=== PATIENT | female | born 1955 | race Caucasian/White ===

== ENCOUNTER 2016-08-23 14:05 | Emergency (ER) | payer OTHER ==
[~2016-08-23] VITALS: Wt 63.0 kg
[~2016-08-23 14:05] MED LIST: CYCL-319 PO; LOSA25TA5 PO; ONDA4TAB14 PO; TRAM50TA2 PO
[2016-08-23] MEDS ORDERED: SOD CHLORIDE 0.9% 1,000 ML IV STA (18:02)
[2016-08-23] MEDS ORDERED: KETOROLAC 15 MG INJ IV STA (18:02)
[2016-08-23] MEDS ORDERED: ONDANSETRON 4 MG INJ IV STA (18:02)
--- NOTE | 2016-08-23 18:02 | ERD ---
ER Documentation Chief Complaint Date/Time DATE: 08/23/16 TIME: 18:02 Chief Complaint R LOW ABD PAIN FOR 1 WK. NO FEVER. NO VOMITING. SENT BY PMD FOR EVAL HPI 60-year-old hypertensive with a long history of chronic abdominal pain female referred to the ED by her PMD at [facility] for evaluation. Patient complains of a 2 week history of worsening, moderate to severe, sharp and achy nonradiating lower abdominal pain which localizes to the suprapubic area and right lower quadrant. Mild nausea but no vomiting, diarrhea or constipation. Denies hematemesis, hematochezia or melanotic stools. Denies dysuria, polyuria, hematuria, vaginal discharge or bleeding. No relieving or exacerbating factors. No fevers or chills. She has had a history of similar pain dating back at least to 2011 with multiple previous ED visits and workups which have been unremarkable. ROS All systems reviewed and are negative except as per history of present illness. Medications Home Meds Active Scripts Ondansetron (Ondansetron Odt) 4 Mg Tab.rapdis, 4 MG PO Q6H Y for NAUSEA AND/OR VOMITING, #10 TAB Prov:JOSE PETERSON MD 08/23/16 Tramadol HCl (Tramadol HCl) 50 Mg Tablet, 50 MG PO Q6, #10 TAB Prov:JOSE PETERSON MD 08/23/16 Reported Medications Losartan Potassium* (Losartan Potassium*) 25 Mg Tablet, 25 MG PO DAILY, TAB 02/26/16 Discontinued Reported Medications Cyclobenzaprine Hcl* (Cyclobenzaprine Hcl*) 10 Mg Tablet, 10 MG PO QHS Y for MUSCLE SPASMS, #60 TAB 02/26/16 Discontinued Scripts Ondansetron (Ondansetron Odt) 4 Mg Tab.rapdis, 4 MG PO Q6H Y for NAUSEA AND/OR VOMITING, #30 TAB Prov:QIANA DE JESUS MD 02/26/16 Tramadol HCl (Tramadol HCl) 50 Mg Tablet, 50 MG PO Q6 Y for PAIN, #10 TAB Prov:QIANA DE JESUS MD 02/26/16 Allergies Allergies: Coded Allergies: metronidazole (Verified Allergy, Unknown, 08/23/16) morphine (Verified Allergy, Unknown, 08/23/16) PMhx/Soc Reviewed in chart. As per HPI. History of Surgery: Yes (GLAUCOMA) Anesthesia Reaction: No Hx Neurological Disorder: No Hx Cardiac Disorders: Yes (HTN) Hx Psychiatric Problems: No Hx Miscellaneous Medical Probl: No Hx Alcohol Use: No Hx Substance Use: No Hx Tobacco Use: No Smoking Status: Never smoker FmHx No stroke or cancer Physical Exam Vitals Vital Signs Date Time Temp Pulse Resp B/P Pulse Ox O2 Delivery O2 Flow Rate FiO2 08/23/16 20:10 98.2 61 20 152/66 100 Room Air 08/23/16 19:10 61 20 154/59 100 Room Air 08/23/16 14:11 98.8 73 20 212/91 99 Physical Exam Const: Alert, mild to moderate distress due to pain. Head: Atraumatic Eyes: Normal Conjunctiva ENT: Normal External Ears, Nose and Mouth. Neck: Full range of motion. Nontender. Resp: Breath sounds are equal and clear to auscultation bilaterally Cardio: Regular rate and rhythm, no murmurs Abd: Soft, moderate suprapubic and right lower quadrant tenderness. No masses or abnormal pulsations. Bowel sounds are present. No rebound or guarding. Skin: No petechiae or rashes Back: No midline or flank tenderness Ext: No cyanosis, or edema. Pulses 4+ in all extremities. Neur: Awake and alert. No focal deficit observed. Psych: Normal Mood and Affect Result Diagram: 08/23/16183008/23/161830 Results 24 hrs Laboratory Tests Test 08/23/16 18:31 Alanine Aminotransferase (ALT/SGPT) 43IU/L Albumin 4.2g/dl Albumin/Globulin Ratio 1.61 Alkaline Phosphatase 77IU/L Anion Gap 16 Aspartate Amino Transf (AST/SGOT) 37IU/L Basophils # 0.010^3/ul Basophils % 0.4% Blood Urea Nitrogen 15mg/dl Calcium Level 9.6mg/dl Carbon Dioxide Level 30mmol/L Chloride Level 104mmol/L Creatinine 0.83mg/dl Direct Bilirubin 0.00mg/dl Eosinophils # 0.010^3/ul Eosinophils % 0.6% Globulin 2.60g/dl Glucose Level 118mg/dl Hematocrit 40.1% Hemoglobin 13.5g/dl Indirect Bilirubin 0.6mg/dl Lipase 60U/L Lymphocytes # 1.710^3/ul Lymphocytes % 33.1% Mean Corpuscular Hemoglobin 31.3pg Mean Corpuscular Hemoglobin Concent 33.7g/dl Mean Corpuscular Volume 92.8fl Mean Platelet Volume 10.4fl Monocytes # 0.210^3/ul Monocytes % 4.6% Neutrophils # 3.210^3/ul Neutrophils % 61.1% Nucleated Red Blood Cells # 0.010^3/ul Nucleated Red Blood Cells % 0.0/100WBC Platelet Count 60158^3/UL Potassium Level 3.6mmol/L Red Blood Count 4.3210^6/ul Red Cell Distribution Width 12.9% Sodium Level 146mmol/L Total Bilirubin 0.6mg/dl Total Protein 6.8g/dl Urine Bilirubin NEGATIVE Urine Clarity CLEAR Urine Color LT. YELLOW Urine Glucose NEGATIVE% Urine Hemoglobin NEGATIVE Urine Ketones NEGATIVE Urine Leukocyte Esterase NEGATIVE Urine Nitrite NEGATIVE Urine Specific Holliday <=1.005 Urine Total Protein NEGATIVE Urine Urobilinogen 0.2 E.U./dL Urine pH 6.0 White Blood Count 5.210^3/ul Current Medications Medications (Trade) Dose Ordered Sig/Sonal Route PRN Reason Start Time Stop Time Status Last Admin Dose Admin Sodium Chloride (NS) 1,000 ml @ 1,000 mls/hr Q1H STAT IV 08/23/16 18:02 08/23/16 19:01 DC 08/23/16 18:34 Ondansetron HCl (Zofran Inj) 4 mg ONCE STAT IV 08/23/16 18:02 08/23/16 18:06 DC 08/23/16 18:33 Ketorolac Tromethamine (Toradol) 15 mg ONCE STAT IV 08/23/16 18:02 08/23/16 18:06 DC 08/23/16 18:34 IV Flush 10 ml 10 ml STK-MED ONCE .ROUTE 08/23/16 19:05 08/23/16 19:06 DC 08/23/16 19:24 Sodium Chloride (NS) 100 ml @ ud STK-MED ONCE .ROUTE 08/23/16 19:05 08/23/16 19:06 DC 08/23/16 19:24 Iohexol (Omnipaque 300mg/ ml) 150 ml STK-MED ONCE .ROUTE 08/23/16 19:05 08/23/16 19:06 DC 08/23/16 19:24 IMAGING: PROCEDURE: US Pelvis Non-OB CLINICAL INDICATION: Abdominal pain TECHNIQUE: Images were taken during real time trans pelvic and endovaginal interrogation. Color-flow and Doppler interrogation of the ovaries was performed. COMPARISON: 03/23/2012 The previous pelvic ultrasound was unremarkable. FINDINGS: Uterus: The uterus is somewhat small measuring and 4.5 cm in sagittal diameter and 3.9 x 2 x 1 cm in cross diameter.. The endometrial stripe measures 0.2 cm. Ovaries: The right ovary measures 2.4 x 1.6 x 1.5 cm and appears unremarkable. The left ovary is not identified. Vascular flow is demonstrated in the right ovary. Adnexa: No adnexal mass is identified. Free intraperitoneal fluid: None visualized. IMPRESSION: 1. Somewhat small empty uterus, having decreased in size since the previous scan, with a 0.2 cm endometrial stripe. 2. The left ovary is not identified. 3. Normal appearing right ovary demonstrating vascular flow. 4. No free fluid or adnexal mass is identified. Physician Anna Date Time Electronically viewed and signed by Physician Anna on 08/23/2016 19:14 RH/ PROCEDURE: CT abdomen and pelvis with intravenous contrast. CLINICAL INDICATION: Abdominal Pain TECHNIQUE: CT scan of the abdomen and pelvis with intravenous contrast was performed on the [place] volumetric [address] scanner at [facility]. Approximately 90 cc of Omnipaque-300 was administered without complication. 3-D coronal reformatted images were obtained from the axial source images. COMPARISON: None. CTDI: 8.5 mGy DLP: 474 mGy-cm FINDINGS: Visualized lung bases are clear. No pleural effusions. The liver, spleen, bilateral adrenal glands, gallbladder, and pancreas are normal-appearing. The bilateral kidneys are normal-appearing without suspicious renal mass or hydronephrosis. No renal calculi are present. The small and large bowel are thin-walled and nondilated without evidence of obstruction. No free air, free fluid, mesenteric stranding, nor abdominal pelvic adenopathy. The appendix is normal-appearing. The uterus is grossly unremarkable. The urinary bladder is decompressed and suboptimally evaluated. Incidentally noted is a left retroaortic renal vein. The abdominal aorta is normal in course and caliber without dissection or aneurysm. No suspicious osseous lesions. IMPRESSION: No acute intra-abdominal nor intrapelvic process. The appendix is normal. No CT evidence for pancreatitis. No gallstones. No bowel obstruction. Physician Bev Date Time Electronically viewed and signed by Physician Bev on 08/23/2016 19 :32 ML/ Procedures/MDM DOCUMENTS REVIEWED: ED nurse, prior ED, prior records ED COURSE: NS fluid bolus, Ketoralac 15mg IV, Zofran 4mg IV. REEXAMINATION/REEVALUATION: Time: 19:50. Doing well. Pain decrease. Still with mild tenderness but no rebound or guarding. MEDICAL DECISION MAKIN-year-old hypertensive with a long history of chronic abdominal pain female referred to the ED by her PMD at [facility] for evaluation. Patient with a long history of similar symptoms dating back at least to 2011 which have become worse recently. CT and ultrasound are unremarkable for an acute process including but not limited to appendicitis, diverticulitis, bowel obstruction, mass or cholelithiasis. Doubt mesenteric ischemia. No ovarian torsion. An occult malignancy is not ruled out. Patient improved with IV hydration and analgesics. Patient clearly understands that the etiology of her symptoms are not established and outpatient follow-up is mandatory. In the absence of signs of serious disease patient is stable for discharge with precautionary instructions, symptomatic treatment and mandatory outpatient follow-up within 24 hours as counseled. Counseled patient regarding diagnostic workup, diagnosis and need for followup. Understands to return to ED if symptoms recur, worsen or any other concerns. Departure Diagnosis: Primary Impression: Abdominal pain of unknown etiology Additional Impressions: Acute abdominal pain in right lower quadrant Chronic abdominal pain Essential hypertension Condition: Stable JOSE PETERSON MD Aug 23, 2016 18:02
[2016-08-23 18:39] LABS: ADD SCAN DIFF NO
[2016-08-23 18:40] LABS: BASOPHILS % 0.4 % (0.0-2.0); EOSINOPHILS % 0.6 % (0.0-7.0); HEMATOCRIT 40.1 % (37.0-47.0); HEMOGLOBIN 13.5 g/dl (12.0-16.0); LYMPHOCYTES # 1.7 10^3/ul (0.8-2.9); LYMPHOCYTES % 33.1 % (15.0-51.0); MEAN CORPUSCULAR HEMOGLOBIN 31.3 pg (29.0-33.0); MEAN CORPUSCULAR HGB CONC 33.7 g/dl (32.0-37.0); MEAN CORPUSCULAR VOLUME 92.8 fl (82.0-101.0); MEAN PLATELET VOLUME 10.4 fl (7.4-10.4); MONOCYTE # 0.2 10^3/ul (0.3-0.9); MONOCYTES % 4.6 % (0.0-11.0); NEUTROPHIL # 3.2 10^3/ul (1.6-7.5); NEUTROPHILS % 61.1 % (39.0-77.0); PLATELET COUNT 250 10^3/UL (140-415); RED BLOOD COUNT 4.32 10^6/ul (4.20-5.40); RED CELL DISTRIBUTION WIDTH 12.9 % (11.5-14.5); WHITE BLOOD COUNT 5.2 10^3/ul (4.8-10.8)
[2016-08-23 18:42] LABS: ADD UMIC NO; URINE BILIRUBIN (Dip) NEGATIVE (NEGATIVE); URINE BLOOD (Dip) NEGATIVE (NEGATIVE); URINE COLOR LT. YELLOW (YELLOW); URINE GLUCOSE (Dip) NEGATIVE (NEGATIVE); URINE KETONES (Dip) NEGATIVE (NEGATIVE); URINE LEUKOCYTE ESTERASE (Dip) NEGATIVE (NEGATIVE); URINE NITRITE (Dip) NEGATIVE (NEGATIVE); URINE TOTAL PROTEIN (Dip) NEGATIVE (NEGATIVE); URINE UROBILINOGEN (Dip) 0.2 E.U./dL (0.1-1.0)
[2016-08-23 18:54] LABS: ALBUMIN 4.2 g/dl (3.3-4.9)
[2016-08-23 18:55] LABS: POTASSIUM 3.6 mmol/L (3.5-5.1)
[2016-08-23 18:57] LABS: ALBUMIN/GLOBULIN RATIO 1.61; BILIRUBIN,INDIRECT 0.6 mg/dl (0-1.1); BILIRUBIN,TOTAL 0.6 mg/dl (0.2-1.3); CREATININE 0.83 mg/dl (0.44-1.00); TOTAL PROTEIN 6.8 g/dl (6.1-8.1)
[2016-08-23 18:58] LABS: CALCIUM 9.6 mg/dl (8.4-10.2)
[2016-08-23] MEDS ORDERED: SOD CHLORIDE 0.9% 100 ML ONE (19:05)
[2016-08-23] MEDS ORDERED: IOHEXOL 300MG/ML 150 ML BTL ONE (19:05)
--- NOTE | 2016-08-23 19:14 | RADRPT ---
PROCEDURE: US Pelvis Non-OB CLINICAL INDICATION: Abdominal pain TECHNIQUE: Images were taken during real time trans pelvic and endovaginal interrogation. Color-fl ow and Doppler interrogation of the ovaries was performed. COMPARISON: 03/23/2012 The previous pelvic ultrasound was unremarkable. FINDINGS: Uterus: The uterus is somewhat small measuring and 4.5 cm in sagittal diameter and 3.9 x 2 x 1 cm i n cross diameter.. The endometrial stripe measures 0.2 cm. Ovaries: The right ovary measures 2.4 x 1.6 x 1.5 cm and appears unremarkable. The left ovary is not identified. Vascular flow is demonstrated in the right ovary. Adnexa: No adnexal mass is identified. Free intraperitoneal fluid: None visualized. IMPRESSION: 1. Somewhat small empty uterus, having decreased in size since the previous scan, with a 0.2 cm end ometrial stripe. 2. The left ovary is not identified. 3. Normal appearing right ovary demonstrating vascular flow. 4. No free fluid or adnexal mass is identified. Physician Anna Date Time Electronically viewed and signed by Physician Anna on 08/23/2016 19:14 /
--- NOTE | 2016-08-23 19:32 | RADRPT ---
PROCEDURE: CT abdomen and pelvis with intravenous contrast. CLINICAL INDICATION: Abdominal Pain TECHNIQUE: CT scan of the abdomen and pelvis with intravenous contrast was performed on the [employer] [address] scanner at [facility]. Approximately 90 cc of Omnipaque-300 was administered without complication. 3-D coronal reformatted images were obtained from the axial sour ce images. COMPARISON: None. CTDI: 8.5 mGy DLP: 474 mGy-cm FINDINGS: Visualized lung bases are clear. No pleural effusions. The liver, spleen, bilateral adrenal glands, gallbladder, and pancreas are normal-appearing. The bilateral kidneys are normal-appearing without suspicious renal mass or hydronephrosis. No renal calculi are present. The small and large bowel are thin-walled and nondilated without evidence of obstruction. No free a ir, free fluid, mesenteric stranding, nor abdominal pelvic adenopathy. The appendix is normal-appea ring. The uterus is grossly unremarkable. The urinary bladder is decompressed and suboptimally evaluated. Incidentally noted is a left retroaortic renal vein. The abdominal aorta is normal in course and caliber without dissection or aneurysm. No suspicious osseous lesions. IMPRESSION: No acute intra-abdominal nor intrapelvic process. The appendix is normal. No CT evidence for pancreatitis. No gallstones. No bowel obstruction. Physician Bev Date Time Electronically viewed and signed by Physician Bev on 08/23/2016 19:32 ML/
[2016-08-23 20:10] VITALS: BP 152/66; PULSE 61; RESP 20; TEMP 98.2
[2016-08-23] MEDS ORDERED: ONDA4TAB14 PO (20:16)
[2016-08-23] MEDS ORDERED: TRAM50TA2 PO (20:16)
== END 2016-08-23 20:20 | disposition home or self-care (01) ==
LOC: E/R 14:05
DX: R10.31 Right lower quadrant pain (principal); I10 Essential (primary) hypertension; R11.0 Nausea
CPT/HCPCS: 36415; 74177; 76830; 76856; 80053; 81003; 83690; 85025; 96374; 96375; J1885; J2405; J7030; Q9967; Z7502; Z7610

== ENCOUNTER 2016-12-29 07:48 | Day surgery (SDC) | payer OTHER ==
[~2016-12-29] VITALS: Ht 152.4 cm; Wt 64.0 kg
[~2016-12-29 07:48] MED LIST changes: -CYCL-319 PO
[2016-12-29 08:41] VITALS: BP 134/62; PULSE 57; RESP 20
[2016-12-29 08:43] VITALS: Ht 152.4 cm; Wt 64.0 kg
[2016-12-29] MEDS ORDERED: LIDOCAINE 4% SOLUTION 50 ML BTL ONE (08:49)
[2016-12-29] MEDS ORDERED: MIDAZOLAM 1 MG/ML 2 ML INJ ONE ×3 (09:14→09:15)
[2016-12-29] MEDS ORDERED: FENTAnyl 50 MCG/ML VIAL ONE (09:15)
--- NOTE | 2016-12-29 09:15 | OPR ---
Date/Time of Note Date/Time of Note DATE: 12/29/16 TIME: 09:13 Operative Report Free Text/Dictation Dr. JAN WHITFIELD dictating the operative procedure Procedure EGD Preop diagnosis patient presenting with history of chronic abdominal pain unresponsive to routine therapy rule out peptic ulcer disease Postop diagnosis mild degree of antral gastritis Details After the informed written consent is obtained patient was asked to lay on the left lateral side 3 mg Versed 50 mcg of fentanyl was given as intravenous anesthesia When the patient becomes somnolent Olympus video upper endoscope was introduced into the oropharynx and then into the esophagus Esophagus appeared to show normal mucosal pattern The stomach showed multiple areas of erythema in the antrum This is consistent with antral gastritis Biopsy was done from the antrum the lesser curvature in the fundus to rule out H. pylori infection Contrast of the stomach also showed minimal erythema The duodenum appeared perfectly normal up to the end of the third portion Scope addition was withdrawn no additional abnormalities detected and the procedure was terminated Plan recommend Pepcid 20 mg p.o. twice daily for 8 weeks Evaluate for the H pylori test results Procedure Date: Dec 29, 2016 SUSY CHILDERS MD Dec 29, 2016 09:15
[2016-12-29 09:30] VITALS: BP 127/62; PULSE 54; RESP 14
== END 2016-12-29 10:34 | disposition home or self-care (01) ==
LOC: SDS 07:48 → GIL 07:48
PROVIDERS: ATTEND Internal Medicine Gastroenterology
DX: K29.50 Unspecified chronic gastritis without bleeding (principal); I10 Essential (primary) hypertension
CPT/HCPCS: 43239; 88305; 88312; J2250; J3010; Z7610

== ENCOUNTER 2017-11-06 10:11 | Emergency (ER) | END 2017-11-06 12:39 | disposition home or self-care (01) ==

== ENCOUNTER 2018-09-28 12:30 | Emergency (ER) | payer OTHER ==
[~2018-09-28] VITALS: Ht 167.6 cm; Wt 67.5 kg
[~2018-09-28 12:30] MED LIST changes: +DOCU-144 PO; +HYDR-3980 PO; +LOSA25TA12 PO; -LOSA25TA5 PO
[2018-09-28 12:45] VITALS: BP 157/68; PULSE 66; RESP 20; Ht 167.6 cm; Wt 67.5 kg
[2018-09-28] MEDS ORDERED: PRED20TA PO (15:41)
[2018-09-28] MEDS ORDERED: BEN25 PO (15:41)
--- NOTE | 2018-09-28 15:46 | ERD ---
ER Documentation Chief Complaint Chief Complaint Complainbs of generalized rash HPI 62-year-old female presents with a rash for the last week which is itchy. She denies any foods which are new, medications, shortness of breath, fevers, abdominal pain, vomiting, chest pain or urinary complaints. Denies previous all ergies. Denies URI symptoms or sore throat ROS All systems reviewed and are negative except as per history of present illness. Medications Home Meds Active Scripts Prednisone* (Prednisone*) 20 Mg Tab, 40 MG PO DAILY for 4 Days, TAB Start September 29, 2018 Prov:CHANA CHOI MD 09/28/18 Diphenhydramine Hcl* (Benadryl*) 25 Mg Cap, 25 MG PO Q6, #20 CAP Prov:CHANA CHOI MD 09/28/18 Ondansetron (Ondansetron Odt) 4 Mg Tab.rapdis, 4 MG PO Q6H PRN for NAUSEA AND/OR VOMITING, #10 TAB Prov:QIANA DE JESUS MD 11/06/17 Docusate Sodium* (Colace*) 100 Mg Capsule, 100 MG PO TID, #30 CAP Prov:QIANA DE JESUS MD 11/06/17 Hydrocodone/Acetaminophen ([place] 10-325 Tablet) 1 Each Tablet, 1 TAB PO Q6H PRN for PAIN, #7 TAB Prov:QIANA DE JESUS MD 11/06/17 Ondansetron (Ondansetron Odt) 4 Mg Tab.rapdis, 4 MG PO Q6H PRN for NAUSEA AND/OR VOMITING, #10 TAB Prov:JOSE PETERSON MD 08/23/16 Tramadol HCl (Tramadol HCl) 50 Mg Tablet, 50 MG PO Q6, #10 TAB Prov:JOSE PETERSON MD 08/23/16 Reported Medications Losartan Potassium* (Losartan Potassium*) 25 Mg Tablet, 25 MG PO DAILY, TAB 02/26/16 Allergies Allergies: Coded Allergies: metronidazole (Verified Allergy, Unknown, 12/29/16) morphine (Verified Allergy, Unknown, 12/29/16) PMhx/Soc History of Surgery: Yes (colonoscopy) Anesthesia Reaction: No Hx Neurological Disorder: No Hx Respiratory Disorders: No Hx Cardiac Disorders: Yes (htn) Hx Psychiatric Problems: No Hx Miscellaneous Medical Probl: No Hx Alcohol Use: No Hx Substance Use: No Hx Tobacco Use: No Smoking Status: Never smoker FmHx Family History: No diabetes, No coronary disease, No other Physical Exam Vitals Vital Signs Date Temp Pulse Resp B/P (MAP) Pulse Ox O2 O2 Flow FiO2 Time Delivery Rate 09/28/18 97.5 66 20 157/68 97 12:45 (97) Physical Exam Const: No acute distress Head: Atraumatic Eyes: Normal Conjunctiva ENT: Normal External Ears, Nose and Mouth. Neck: Full range of motion. No meningismus. Resp: Clear to auscultation bilaterally Cardio: Regular rate and rhythm, no murmurs Abd: Soft, non tender, non distended. Normal bowel sounds Skin: No petechiae or purpura. Scattered wheals with dermographism. No induration, streaking, vesicles. Back: No midline or flank tenderness Ext: No cyanosis, or edema Neur: Awake and alert Psych: Normal Mood and Affect Results 24 hrs Current Medications Medications Dose Sig/Sonal Start Time Status Last (Trade) Ordered Route PRN Stop Time Admin Dose Reason Admin Prednisone 60 mg ONCE ONCE 09/28/18 (Prednisone) PO 16:00 09/28/18 16:01 25 mg ONCE ONCE 09/28/18 Diphenhydrami IM 16:00 09/28/18 ne HCl 16:01 (Benadryl) Procedures/MDM Patient presents with itchy rash over the last week with signs of likely urticaria. She has no evidence of respiratory distress, signs of anaphylaxis, cellulitis, purpura or life-threatening rashes. She was given Benadryl 25 mg IM prednisone 60 mg by mouth. She will be treated with Benadryl. Is at home, with primary care follow-up and return precautions and observance of environment for potential allergens. The patient was stable with no new complaints during the ER course. Clinically, there is no current evidence to suggest meningitis, sepsis, acute abdomen, pneumonia, stroke, acute coronary syndrome, pulmonary embolism, aortic dissection or any other emergent condition appearing to require further evaluation or hospitalization. Patient counseled regarding my d iagnostic impression and care plan. Prior to discharge all questions answered. Pt agrees with treatment plan and understands strict return precautions. Pt is instructed to follow up with primary care provider within 24-48 hours. Precautionary instructions provided including instructions to return to the ER if not improving or for any worsening or changing symptoms or concerns. Departure Diagnosis: Primary Impression: Hives Additional Impression: Rash Condition: Stable Patient Instructions: Hives Additional Instructions: PROBABALAMENTE UN ALLERGIA. Cheque otro vez con [place] doctor primario en el proximo soto or regresa para mas o nueva simptomas. CHANA CHOI MD Sep 28, 2018 15:46
[2018-09-28] MEDS ORDERED: predniSONE 20 MG TAB PO ONE (16:00)
[2018-09-28] MEDS ORDERED: DIPHENHYDRAMINE 50 MG INJ IM ONE (16:00)
== END 2018-09-28 16:04 | disposition home or self-care (01) ==
LOC: FTE 12:30
DX: L50.9 Urticaria, unspecified (principal); I10 Essential (primary) hypertension
CPT/HCPCS: 96372; J1200; J7512; Z7502